=== PATIENT | female | born 1950 | race Caucasian/White ===

== ENCOUNTER 2016-06-07 05:59 | Day surgery (SDC) | payer OTHER ==
[~2016-06-07] VITALS: Ht 154.9 cm; Wt 73.1 kg
--- NOTE | 2016-06-07 04:04 | HISTORY AND PHYSICAL ---
ADMITTED: 06/07/2016 HISTORY OF PRESENT ILLNESS: The patient is a 66-year-old female seen today with a chief complaint of a painful left foot. She states she gets corns and calluses between her left great toe and left second toe. She states she has exhausted conservative care and would like to have them surgically corrected. MEDICAL/SURGICAL HISTORY: Essentially noncontributory. Surgical history: Tonsils and adenoids and a shoulder procedure. PRIMARY CARE PROVIDER: Dr. Kirit Torrez. MEDICATIONS: 1. Currently takes 1 delayed release 325 mg aspirin daily. ALLERGIES: 1. IBUPROFEN. SOCIAL HISTORY: She is , currently smokes, does not drink. FAMILY HISTORY: Noncontributory to chief complaint. REVIEW OF SYSTEMS: A 10-point review of systems noncontributory to chief complaint. PHYSICAL EXAMINATION: GENERAL: The patient is alert and oriented x3. HEAD AND NECK: PERRLA. Normocephalic. HEART: Regular rate and rhythm. Regular S1 and S2. NEUROLOGIC: Deep tendon reflexes and epicritic sensations are intact. Muscle strength, dorsiflexion, plantarflexion, inverters, everters, and intrinsics are intact. The left foot, the left great toe is subluxed in the transverse plane at the IP and MTP levels. The second digit is contracted at the proximal interphalangeal joint and there is noted concomitant callosity at the adjacent surfaces of the second and great toe. LAB/IMAGING: Revealed mild hallux valgus deformity with abutment of the left great toe upon the second toe. The second digit is contracted at the interphalangeal joint in the sagittal plane. IMPRESSION: 1. Hallux valgus deformity 2. Hammertoe deformity PLAN: The patient is scheduled for an outpatient procedure consisting of an Alfredo osteotomy of the proximal phalanx, left great toe and arthroplasty of the second digit. There are no contraindications to surgery at this time. Surgery is scheduled as an outpatient at [facility] on 06/07/2016
[~2016-06-07 05:59] MED LIST: ASPIRIN325 MG PO
--- NOTE | 2016-06-07 07:07 | DIAGNOSTIC IMAGING REPORT ---
PROCEDURE: XR CHEST 1 VIEW INDICATION: Cough, initial encounter TECHNIQUE: Portable AP view 06:01 a.m. COMPARISON: None. FINDINGS: Minor right basilar scar. Heart and mediastinum are normal. Thorax is normal. IMPRESSION: 1. No acute changes 2. Right basilar scar
[2016-06-07] MEDS ORDERED: HYDROMORPHONE HC2 MG PO (09:48)
--- NOTE | 2016-06-07 09:49 | Provider's Discharge Care Plan ---
Problem, Goal, Plan Problem List 1. Acquired hallux valgus of left foot Goals: Improve function Instructions: Follow up as directed
--- NOTE | 2016-06-07 09:49 | Provider's Discharge Care Plan ---
Problem, Goal, Plan Problem List 1. Acquired hallux valgus of left foot Goals: Improve function Instructions: Follow up as directed
--- NOTE | 2016-06-07 10:36 | OPERATIVE REPORT ---
DATE OF SURGERY: 06/07/2016 SURGEON: Jaguar Mello DPM PREOPERATIVE DIAGNOSES: 1. Hallux valgus deformity, left foot 2. Hammertoe deformity, second digit, left foot POSTOPERATIVE DIAGNOSES: 1. Hallux valgus deformity, left foot 2. Hammertoe deformity, second digit, left foot PROCEDURE PERFORMED: 1. Alfredo osteotomy left great toe. 2. Arthroplasty, second digit, left foot HEMOSTASIS: Achieved by pneumatic ankle tourniquet 200 mmHg pressure. TOURNIQUET TIME: Total tourniquet time 49 minutes. MATERIALS: BME Speed staple, 11 x 10 x 10, 3-0 poly and 3-0 Surgipro. INJECTABLES: Injected 20 mL of 0.5% bupivacaine plain. COMPLICATIONS: None. CONDITION: The patient tolerated anesthesia and procedure well. INDICATIONS: The patient is a 66-year-old female who presents with a painful hammertoe deformity, second digit, left as well as a painful callus between the left great toe and second toe. The left great toe was in a valgus position abutment against the second. She is well aware of the planned procedure of an Alfredo osteotomy of left great toe as well as an arthroplasty. There are no contraindications to surgery at this time. SURGICAL TECHNIQUE: The patient was brought to the operating room and placed on the operative table in a supine position. At this time, a general anesthetic was administered, pneumatic tourniquet was then placed above the left ankle. The left lower extremity was prepped and draped in normal sterile fashion. Surgical time-out was carried out. Proper identification, proper limb, and consent form verified and confirmed. At this time, the pneumatic Esmarch bandage was utilized to exsanguinate the limb, the tourniquet was then inflated. Attention was then directed to procedure #1. PROCEDURE #1: Alfredo osteotomy of the left great toe. Attention was directed to the dorsum of the left great toe where a linear incision was made medial to the extensor hallucis longus tendon extending from the MTP extending across the IPJ of the hallux. It was taken down to bone. The long extensor tendon was then reflected laterally. Approximately midshaft of the proximal phalanx, an Alfredo osteotomy was carried out. It was then closed down with the 11 x 10 x 10 BME Speed staple with good compression noted. Verification under fluoroscopy was carried out. The toe was in more rectus position and valgus deformity had been addressed. The area was flushed. Capsule and periosteum were approximated 0 Polysorb, skin was reapproximated in a running fashion with 4-0 Surgipro. Attention was then directed to procedure #2. Arthroplasty, second digit. Attention was directed to the proximal interphalangeal joint of the second digit where a transverse incision was made perpendicular to the long axis, deepened by sharp and blunt dissection. The long extensor tendon was transected and reflected. The head of the proximal phalanx was excised. The area was flushed and verified under fluoroscopy. The medial base of the intermediate phalanx was visualized, as well, and it was then contoured and the condyle was removed with a power instrumentation and then smoothed down with the hand-held rasp. The area was flushed. The long extensor tendon was reapproximated and coapted in a [id number] fashion with 3-0 Polysorb and skin edges reapproximated in a running fashion with 4-0 Surgipro. A light compressive dressing was applied with good reactive hyperemia and good digital perfusion. The patient tolerated anesthesia and procedure well and left the operating room with vital signs stable. In recovery, written instructions of touchdown weightbearing with aid of a fracture boot and postoperative instructions dispensed. Follow back with me in 3 to 5 days.
[2016-06-07 11:19] VITALS: BP 106/55
== END 2016-06-07 11:58 | disposition home or self-care (01) ==
LOC: OR SRH 05:59 → SCU SRH 06:04 → OR SRH 07:30
PROVIDERS: Podiatrist
PROC: 0QBR0ZZ Excision of Left Toe Phalanx, Open Approach (ICD-10-PCS; principal; 2016-06-07 08:45)
PROC: 0QSR04Z Reposition Left Toe Phalanx with Internal Fixation Device, Open Approach (ICD-10-PCS; principal; 2016-06-07 08:45)
DX: M20.12 Hallux valgus (acquired), left foot (principal); M20.42 Other hammer toe(s) (acquired), left foot
CPT/HCPCS: 29229; 29240; 50004; 60001; 70002; 80212; 80575; 80828; 81267; 83266; 83414; 83773; 84038; 84522; 85571; 90074; 90100; 95059